=== PATIENT | female | born 1965 | race Caucasian/White ===

== ENCOUNTER 2020-11-08 07:45 | Outpatient (REF) | payer OTHER, SELFPAY ==
[2020-11-08 08:02] LABS: IDNOW Serial# 55D5AD1C
[2020-11-08 08:03] LABS: COVID-19 Test Negative (Negative)
== END 2020-11-08 07:46 | disposition home or self-care (01) ==
LOC: HO.EMPCOV 07:45
PROVIDERS: Visit Provider Internal Medicine
DX: Z20.828 Contact with and (suspected) exposure to other viral communicable diseases (principal)
CPT/HCPCS: 87635; C9803